=== PATIENT | female | born 1935 | race Caucasian/White ===

== ENCOUNTER 2017-06-29 08:54 | Day surgery (SDC) | payer MEDICARE, BC ==
[2017-06-29] MEDS ORDERED: LIDOCAINE HCL 2% MPF SOL ONE ×2 (09:34→09:57)
[2017-06-29] MEDS ORDERED: PROPOFOL 500 MG/50 ML EMU IV ONE (09:56)
[2017-06-29] MEDS ORDERED: KETOROLAC TROMETHAMINE 30 MG/ML SOL ONE (09:57)
[2017-06-29] MEDS ORDERED: FENTANYL 100MCG/2ML SOL ONE (09:58)
[2017-06-29] MEDS: BUPIVACAINE HCL 0.5% MPF 10 ML SOL ONE ×2 (10:24→10:32)
[2017-06-29 11:34] VITALS: BP 132/62; PULSE 53; RESP 18; TEMP 98.3; O2SAT 94
== END 2017-06-29 12:01 | disposition home or self-care (01) | DRG 74 ==
LOC: SURG 08:54
PROVIDERS: ATTEND Orthopaedic Surgery
DX: G56.03 Carpal tunnel syndrome, bilateral upper limbs (principal)
CPT/HCPCS: J1885; J3010; A6402; J2704

== ENCOUNTER 2019-02-18 11:51 | Outpatient (CLI) | payer MEDICARE, BC ==
[2017-06-29 11:34] VITALS: O2SAT 94
== END 2019-02-18 11:52 | disposition home or self-care (01) | DRG 554 ==
LOC: CONVCARE 11:51
PROVIDERS: ATTEND Orthopaedic Surgery
DX: M17.0 Bilateral primary osteoarthritis of knee (principal)
CPT/HCPCS: 73562